=== PATIENT | female | born 1955 | race Caucasian/White ===

== ENCOUNTER → 2023-10-12 09:56 | Outpatient (CLI) | payer BC, SELFPAY ==
--- NOTE | 2023-10-12 | DI.RAD.S_ITS ---
PROCEDURE: XR CHEST 2V INDICATIONS: COUGH TECHNIQUE: 2 views of the chest were acquired. COMPARISON: None. FINDINGS: Surgical changes and devices: None. Lungs and pleura: Lungs are clear. No pleural effusions or pneumothorax. Mediastinum: Mediastinal contours are normal. Heart size is normal. Bones and chest wall: No suspicious bony abnormalities. Soft tissues appear unremarkable. IMPRESSION: No acute cardiopulmonary pathology. Dictated by: Jorge Titus M.D. on 10/12/2023 at 12:17 Approved by: Jorge Titus M.D. on 10/12/2023 at 12:18
== END ==
PROVIDERS: PCP Internal Medicine; Referring Provider Internal Medicine; Visit Provider Internal Medicine
DX: R05.9 Cough, unspecified (principal)
CPT/HCPCS: 71046

== ENCOUNTER → 2024-06-12 14:21 | Outpatient (CLI) | payer BC, SELFPAY ==
--- NOTE | 2024-06-12 | DI.RAD.S_ITS ---
PROCEDURE: XR CHEST 2V INDICATIONS: COUGH TECHNIQUE: 2 views of the chest were acquired. COMPARISON: [facility], CR, XR CHEST 2V, 10/12/2023, 10:16. FINDINGS: Surgical changes and devices: None. Lungs and pleura: Lungs are clear. No pleural effusions or pneumothorax. Mediastinum: Mediastinal contours are normal. Heart size is normal. Bones and chest wall: No suspicious bony abnormalities. Soft tissues appear unremarkable. IMPRESSION: No acute cardiopulmonary abnormality is seen. Dictated by: Cuca Allen MD, PhD on 06/13/2024 at 12:01 Approved by: Cuca Allen MD, PhD on 06/13/2024 at 12:02
--- NOTE | 2024-06-12 | DI.MRI.S_ITS ---
PROCEDURE: MR ANKLE LT WO CON INDICATIONS: ACUTE LEFT ANKLE PAIN TECHNIQUE: Noncontrast sagittal T1 spin echo and T2 fast spin echo with fat saturation, axial proton density fast spin echo and T2 fast spin echo with fat saturation, coronal T1 spin echo and T2 fast spin echo with fat saturation through the ankle/hindfoot. COMPARISON: [facility], CR, XR ANKLE 1 OR 2 VIEWS LEFT, 05/21/2024, 14:08. FINDINGS: Image quality: Excellent. Bones: The bone marrow signal is normal. The anterior process of the calcaneus and lateral process of the talus are intact. No talar dome osteochondral defect is seen. Joints: There is no significant joint effusion. 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 Sinus tarsi: The sinus tarsi signal is normal. There is a small amount of fluid in the Gruberi bursa (6/16). 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 Lateral collateral ligament: There is low signal thickening of the anterior talofibular ligament. The lateral collateral ligaments are otherwise normal. Deltoid ligament: The visualized components of the deltoid ligament, that being the posterior tibiotalar and tibiospring ligaments, are normal. Calcaneonavicular spring ligament: The superomedial component of the calcaneonavicular spring ligament is grossly intact. Tendons: The Achilles tendon is normal. The extensor, flexor and peroneal tendons are normal. The peroneal tendons are appropriately situated within the retromalleolar groove, and the superficial peroneal retinaculum is intact. Plantar aponeurosis: Mild perifascial edema is present at the central band of the plantar fascia at the heel with adjacent subentheseal marrow edema at the calcaneus (6/15). Plantar musculature: Intramuscular edema is present within the abductor digiti minimi at the level of the calcaneal body with fluid signal (7/20; 6/17). There are no findings of denervation involving the plantar muscles of the foot. Nerves: The visualized nerves are unremarkable. Other: Flat contour of the retromalleolar groove (3/18). IMPRESSION: 1. Moderate muscle strain with interstitial partial tearing of the abductor digiti minimi at the level of the calcaneal body. 2. Mild plantar fasciitis of the central band at the heel. 3. Chronic sprain of the anterior talofibular ligament of the lateral collateral ligament complex. 4. Chronic sprains of the syndesmotic ligaments. 5. Mild talonavicular osteoarthritis. Dictated by: Erasmo Manuel M.D. on 06/12/2024 at 17:13 Approved by: Erasmo Manuel M.D. on 06/12/2024 at 17:25
--- NOTE | 2024-06-12 14:23 | DI.CT.S_ITS ---
PROCEDURE: CT SINUS SCREEN WO CON INDICATIONS: PERSISTENT RHINORRHEA TECHNIQUE: Noncontrast 3.0 mm axial images acquired from the frontal sinuses to the mid-sella, with coronal and sagittal reformats. For radiation dose reduction, the following was used: automated exposure control, adjustment of mA and/or kV according to patient size. COMPARISON: None. FINDINGS: Image quality: Excellent. Sinuses: No significant mucosal thickening, fluid levels, mucous retention cysts versus polyps. Ostiomeatal Complexes: Ostiomeatal complexes are patent. Miscellaneous: Visualized intra-orbital contents are normal. No sandra bullosa or paradoxical turbinate curvature. Rightward nasal septal deviation. IMPRESSION: Sinuses are clear. Ostiomeatal complexes are patent. Dictated by: Nani Edward M.D. on 06/13/2024 at 16:45 Approved by: Nani Edward M.D. on 06/13/2024 at 16:49
== END ==
PROVIDERS: PCP Internal Medicine; Referring Provider Allergy & Immunology; Visit Provider Allergy & Immunology
DX: J31.0 Chronic rhinitis (principal); J45.909 Unspecified asthma, uncomplicated; R05.3 Chronic cough; J34.2 Deviated nasal septum; S93.492A Sprain of other ligament of left ankle, initial encounter; S96.812A Strain of other specified muscles and tendons at ankle and foot level, left foot, initial encounter; M72.2 Plantar fascial fibromatosis; M25.572 Pain in left ankle and joints of left foot; M19.072 Primary osteoarthritis, left ankle and foot
CPT/HCPCS: 70486; 71046; 73721